=== PATIENT | female | born 1995 | race Two or more races ===

== ENCOUNTER 2020-10-30 00:34 | Emergency (ER) | payer MEDICAID ==
[~2020-10-30] VITALS: Ht 149.9 cm; Wt 51.0 kg
[2020-10-30 00:41] VITALS: BP 104/70
--- NOTE | 2020-10-30 00:46 | NUR ---
EKG IN TRIAGE
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
== END 2020-10-30 04:37 | disposition home or self-care (01) ==
LOC: ED 04:34
DX: O26.893 Other specified pregnancy related conditions, third trimester (principal); R10.32 Left lower quadrant pain; R42 Dizziness and giddiness; Z3A.32 32 weeks gestation of pregnancy
CPT/HCPCS: 93005; 99283

== ENCOUNTER 2020-10-30 02:18 | Observation (INO) | payer MEDICAID ==
[~2020-10-30] VITALS: Ht 149.9 cm; Wt 48.0 kg
== END 2020-10-30 07:57 | disposition home or self-care (01) ==
LOC: LDOP 02:18 → LDIP 04:00
PROVIDERS: ADMIT Obstetrics & Gynecology; ATTEND Obstetrics & Gynecology
DX: Z34.83 Encounter for supervision of other normal pregnancy, third trimester (principal); Z3A.32 32 weeks gestation of pregnancy; W19.XXXA Unspecified fall, initial encounter; Y93.89 Activity, other specified; Y92.89 Other specified places as the place of occurrence of the external cause
CPT/HCPCS: 59025; 76819; G0378

== ENCOUNTER 2020-12-13 01:34 | Inpatient (IN) | payer MEDICAID ==
[~2020-12-13] VITALS: Ht 149.9 cm; Wt 54.5 kg
[~2020-12-13 01:34] MED LIST: PREN1TAB60 PO
[2020-12-13] MEDS ORDERED: OXYTOCIN 30U/ 0.9% NaCL 500ML 500 ML IV ONE (04:00)
[2020-12-13] MEDS ORDERED: LACTATED RINGERS 1,000 ML IV SCH ×3 (04:00→12:30)
[2020-12-13] MEDS ORDERED: TERBUTALINE 1 MG/ML, 1ML SQ PRN (04:00)
[2020-12-13] MEDS ORDERED: FENTANYL PF 100 MCG/2ML IVPush PRN (04:00)
[2020-12-13] MEDS ORDERED: ONDANSETRON 2MG/ML, 2ML IVPush PRN (04:00)
[2020-12-13] MEDS ORDERED: TERBUTALINE 1 MG/ML, 1ML IVPush PRN (04:00)
[2020-12-13] MEDS ORDERED: FENTANYL PF 100 MCG/2ML IV PRN (04:00)
[2020-12-13 04:20] LABS: BASOPHILS % (AUTO) 1 % (0-1); EOSINOPHILS % (AUTO) 0 % (1-7); LYMPHOCYTES % (AUTO) 21 % (22-44); MEAN CORPUSCULAR HEMOGLOBIN 25.4 pg (27.0-34.8); MEAN CORPUSCULAR HGB CONC 32.9 g/dL (32.4-35.8); MEAN PLATELET VOLUME 9.7 fL (7.4-10.4); MONOCYTES % (AUTO) 7 % (2-9); NEUTROPHILS % (AUTO) 72 % (42-75); PLATELET COUNT 105 x10^3/uL (130-400); RED BLOOD COUNT 3.61 x10^6/uL (3.82-5.3); RED CELL DISTRIBUTION WIDTH 17.7 % (9.6-15.2)
[2020-12-13] MEDS ORDERED: NEWBORN KIT ONE (05:57)
[2020-12-13] MEDS ORDERED: LIDOCAINE 1%, 20ML ONE ×2 (05:58→20:04)
[2020-12-13] MEDS ORDERED: MISOPROSTOL 200 MCG TABLET ONE ×2 (05:58→20:04)
[2020-12-13] MEDS ORDERED: EPHEDRINE 50 MG/ML, 1ML IVPush PRN ×2 (07:30→12:30)
[2020-12-13] MEDS ORDERED: FENTANYL/BUPIV./NS/PF 250 ML EPIDCONT SCH ×2 (07:30→12:30)
[2020-12-13] MEDS ORDERED: LACTATED RINGERS 1,000 ML IVBOLUS PRN ×2 (07:30→12:30)
[2020-12-13] MEDS ORDERED: BUPIVACAINE 0.25% ONE (08:31)
[2020-12-13] MEDS: D5%-LACTATED RINGERS 1,000 ML IV SCH ×2 (11:45→20:00)
[2020-12-13] MEDS ORDERED: OXYTOCIN 30U/ 0.9% NaCL 500ML 500 ML ONE (13:58)
[2020-12-13] MEDS ORDERED: ACETAMINOPHEN 325 MG TABLET ONE (19:13)
[2020-12-13] MEDS: AMPICILLIN 2 GM in SODIUM CHLORIDE 0.9% 100 ML IV SCH ×2 (19:17→23:30)
[2020-12-13] MEDS ORDERED: PHARMACOKINETIC CONSULTATION MC ONE (19:30)
[2020-12-13] MEDS ORDERED: PHARMACOKINETIC MONITORING MC PRN (19:30)
[2020-12-13] MEDS ORDERED: ACETAMINOPHEN 325 MG TABLET PO ONE (19:30)
[2020-12-13] MEDS ORDERED: GENTAMICIN PER PHARMACY MC PRN (19:30)
[2020-12-13] MEDS: GENTAMICIN 100 MG in SODIUM CHLORIDE 0.9% 50 ML IV SCH (19:48)
[2020-12-13] MEDS ORDERED: OXYcodone/APAP 5/325MG TABLET PO PRN ×2 (23:30)
[2020-12-13] MEDS: OXYTOCIN 30U/ 0.9% NaCL 500ML 500 ML IV SCH (23:30)
[2020-12-13] MEDS ORDERED: DIPH,PERTUSS(ACELL),TET VAC/PF NC IM-VACC PRN (23:30)
[2020-12-13] MEDS ORDERED: SIMETHICONE 80 MG CHEW TAB PO PRN (23:30)
[2020-12-13] MEDS ORDERED: ACETAMINOPHEN 325 MG TABLET PO PRN (23:30)
[2020-12-13] MEDS ORDERED: MISOPROSTOL 200 MCG TABLET PR PRN (23:30)
[2020-12-13 23:57] LABS: ALANINE AMINOTRANSFERASE 16 U/L (12-78); ALBUMIN 1.6 g/dL (3.4-5.0); ANION GAP 9 mmol/L (5-15); CALCIUM 7.6 mg/dL (8.5-10.1); CHLORIDE 111 mmol/L (98-107); CREATININE 0.84 mg/dL (0.55-1.02)
[2020-12-13 23:59] LABS: ALKALINE PHOSPHATASE 181 U/L (45-117); BILIRUBIN,TOTAL 0.3 mg/dL (0.2-1.0); TOTAL PROTEIN 4.9 g/dL (6.4-8.2)
[2020-12-14] VITALS (9 sets, daily range): BP systolic 107–139; BP diastolic 69–88
[2020-12-14 00:02] LABS: BILIRUBIN, DIRECT < 0.1 mg/dL (0.1-0.2)
[2020-12-14] MEDS: IBUPROFEN 600 MG TABLET PO PRN ×4 (01:24→22:11)
[2020-12-14] MEDS: D5%-LACTATED RINGERS 1,000 ML IV SCH ×3 (04:05→20:00)
[2020-12-14] MEDS: GENTAMICIN 100 MG in SODIUM CHLORIDE 0.9% 50 ML IV SCH ×4 (04:20→22:12)
[2020-12-14] MEDS: AMPICILLIN 1 GM in SODIUM CHLORIDE 0.9% 100 ML IV SCH ×4 (05:17→23:22)
[2020-12-14 06:24] LABS: CREATININE 0.83 mg/dL (0.55-1.02)
[2020-12-14 06:59] LABS: BASOPHILS % (AUTO) 0 % (0-1); EOSINOPHILS % (AUTO) 0 % (1-7); LYMPHOCYTES % (AUTO) 10 % (22-44); MEAN CORPUSCULAR HEMOGLOBIN 24.9 pg (27.0-34.8); MEAN CORPUSCULAR HGB CONC 32.4 g/dL (32.4-35.8); MEAN PLATELET VOLUME 10.2 fL (7.4-10.4); MONOCYTES % (AUTO) 6 % (2-9); NEUTROPHILS % (AUTO) 84 % (42-75); PLATELET COUNT 93 x10^3/uL (130-400); RED BLOOD COUNT 3.01 x10^6/uL (3.82-5.3); RED CELL DISTRIBUTION WIDTH 17.9 % (9.6-15.2)
[2020-12-14] MEDS: OXYTOCIN 30U/ 0.9% NaCL 500ML 500 ML IV SCH ×2 (09:30→19:30)
[2020-12-14] MEDS: PRENATAL VIT/IRON/FA 1 EACH TABLET PO SCH (09:37)
[2020-12-14] MEDS: DOCUSATE 100 MG CAPSULE PO PRN ×2 (09:37→22:11)
[2020-12-14 16:10] LABS: BASOPHILS % (AUTO) 1 % (0-1); EOSINOPHILS % (AUTO) 1 % (1-7); LYMPHOCYTES % (AUTO) 10 % (22-44); MEAN CORPUSCULAR HEMOGLOBIN 25.1 pg (27.0-34.8); MEAN CORPUSCULAR HGB CONC 32.3 g/dL (32.4-35.8); MEAN PLATELET VOLUME 9.9 fL (7.4-10.4); MONOCYTES % (AUTO) 4 % (2-9); NEUTROPHILS % (AUTO) 85 % (42-75); PLATELET COUNT 99 x10^3/uL (130-400); RED BLOOD COUNT 3.27 x10^6/uL (3.82-5.3); RED CELL DISTRIBUTION WIDTH 18.3 % (9.6-15.2)
[2020-12-14 16:19] LABS: ALANINE AMINOTRANSFERASE 20 U/L (12-78); ALBUMIN 1.4 g/dL (3.4-5.0); ANION GAP 6 mmol/L (5-15); CHLORIDE 115 mmol/L (98-107)
[2020-12-14 16:23] LABS: ALKALINE PHOSPHATASE 149 U/L (45-117); BILIRUBIN,TOTAL 0.2 mg/dL (0.2-1.0); TOTAL PROTEIN 4.4 g/dL (6.4-8.2); TROPONIN I < 0.015 ng/mL (0.000-0.045)
[2020-12-14] MEDS: FERROUS SULFATE 325 MG TABLET PO SCH (17:52)
[2020-12-14 19:20] LABS: TROPONIN I < 0.015 ng/mL (0.000-0.045)
[2020-12-15] MEDS: D5%-LACTATED RINGERS 1,000 ML IV SCH (04:00)
[2020-12-15 04:15] VITALS: BP 126/69
[2020-12-15] MEDS: AMPICILLIN 1 GM in SODIUM CHLORIDE 0.9% 100 ML IV SCH (05:10)
[2020-12-15] MEDS: OXYTOCIN 30U/ 0.9% NaCL 500ML 500 ML IV SCH (05:30)
[2020-12-15] MEDS: GENTAMICIN 100 MG in SODIUM CHLORIDE 0.9% 50 ML IV SCH (06:27)
[2020-12-15 07:55] VITALS: BP 127/83
[2020-12-15] MEDS: PRENATAL VIT/IRON/FA 1 EACH TABLET PO SCH (08:28)
[2020-12-15] MEDS: IBUPROFEN 600 MG TABLET PO PRN (08:28)
[2020-12-15] MEDS: FERROUS SULFATE 325 MG TABLET PO SCH (08:28)
[2020-12-15] MEDS: DOCUSATE 100 MG CAPSULE PO PRN (08:29)
[2020-12-15] MEDS ORDERED: CEFTRIAXONE 1,000 MG in DEXTROSE 5% 50 ML IVPB SCH (10:00)
[2020-12-15] MEDS ORDERED: AZIT250T89 PO (10:16)
[2020-12-15] MEDS ORDERED: CEFD300C37 PO (10:16)
[2020-12-15] MEDS ORDERED: AZITHROMYCIN 500 MG TABLET PO ONE (10:30)
[2020-12-15 13:23] VITALS: BP 135/85
== END 2020-12-15 14:55 | disposition home or self-care (01) | DRG 560 ==
LOC: LDOP 01:34 → LDIP 02:57 → 2NW 12-14 00:58
PROVIDERS: ADMIT Obstetrics & Gynecology; ATTEND Obstetrics & Gynecology
PROC: 10E0XZZ Delivery of Products of Conception, External Approach (ICD-10-PCS; principal; 2020-12-13)
PROC: 0HQ9XZZ Repair Perineum Skin, External Approach (ICD-10-PCS; 2020-12-13)
PROC: 3E0R3BZ Introduction of Anesthetic Agent into Spinal Canal, Percutaneous Approach (ICD-10-PCS; 2020-12-13)
PROC: 00HU33Z Insertion of Infusion Device into Spinal Canal, Percutaneous Approach (ICD-10-PCS; 2020-12-13)
DX: O99.12 Other diseases of the blood and blood-forming organs and certain disorders involving the immune mechanism complicating childbirth (principal); Z37.0 Single live birth; D69.6 Thrombocytopenia, unspecified; J18.9 Pneumonia, unspecified organism; O75.2 Pyrexia during labor, not elsewhere classified; O99.344 Other mental disorders complicating childbirth; D50.9 Iron deficiency anemia, unspecified; O99.02 Anemia complicating childbirth; O99.52 Diseases of the respiratory system complicating childbirth; R09.02 Hypoxemia; Z20.822 Contact with and (suspected) exposure to COVID-19; Z3A.38 38 weeks gestation of pregnancy; F41.9 Anxiety disorder, unspecified; O70.0 First degree perineal laceration during delivery
CPT/HCPCS: 36415; J7121; 71045; 80053; 82248; 82565; 82728; 83540; 83550; 84484; 84520; 84550; 85025; 86592; 86850; 86900; 87635; 93005; G0378; J0290; J0696; J1580

== ENCOUNTER 2020-12-29 18:36 | Emergency (ER) | payer MEDICAID ==
[~2020-12-29] VITALS: Ht 147.3 cm; Wt 46.0 kg
[~2020-12-29 18:36] MED LIST changes: +AZIT250T89 PO; +CEFD300C37 PO
--- NOTE | 2020-12-29 18:47 | NUR ---
no answer from lobby
[2020-12-29 19:46] LABS: BASOPHILS % (AUTO) 0 % (0-1); EOSINOPHILS % (AUTO) 0 % (1-7); LYMPHOCYTES % (AUTO) 12 % (22-44); MEAN CORPUSCULAR HEMOGLOBIN 26.3 pg (27.0-34.8); MEAN CORPUSCULAR HGB CONC 32.9 g/dL (32.4-35.8); MEAN PLATELET VOLUME 8.3 fL (7.4-10.4); MONOCYTES % (AUTO) 4 % (2-9); NEUTROPHILS % (AUTO) 84 % (42-75); PLATELET COUNT 218 x10^3/uL (130-400); RED BLOOD COUNT 4.44 x10^6/uL (3.82-5.3); RED CELL DISTRIBUTION WIDTH 22.1 % (9.6-15.2)
[2020-12-29 19:58] LABS: ALANINE AMINOTRANSFERASE 31 U/L (12-78); ANION GAP 4 mmol/L (5-15); CALCIUM 8.2 mg/dL (8.5-10.1); CHLORIDE 109 mmol/L (98-107); CREATININE 0.79 mg/dL (0.55-1.02)
[2020-12-29 20:00] LABS: ALKALINE PHOSPHATASE 111 U/L (45-117); BILIRUBIN,TOTAL 0.4 mg/dL (0.2-1.0); TOTAL PROTEIN 6.7 g/dL (6.4-8.2)
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
[2020-12-29 21:46] LABS: MICROSCOPIC INDICATED
--- NOTE | 2020-12-29 21:58 | NUR ---
COVID SWAB WALKED TO LAB
--- NOTE | 2020-12-29 23:00 | NUR ---
ERP at bedside.
--- NOTE | 2020-12-29 23:18 | NUR ---
patient discharged with prescription and instruction. verbalized understanding.
[2020-12-29 23:19] VITALS: BP 104/67
== END 2020-12-29 23:47 | disposition home or self-care (01) ==
LOC: ED 22:53
DX: N30.01 Acute cystitis with hematuria (principal); Z20.822 Contact with and (suspected) exposure to COVID-19; R00.0 Tachycardia, unspecified
CPT/HCPCS: 36415; 80053; 81001; 81025; 85025; 87086; 93005; 99284; U0003; U0005